=== PATIENT | male | born 1970 | race Caucasian/White ===

== ENCOUNTER 2016-12-03 21:24 | Emergency (ER) | payer BC ==
[~2016-12-03] VITALS: Ht 190.5 cm; Wt 104.0 kg
[2016-12-03] MEDS ORDERED: FLUOXETINE HCL10 M1 PO (21:47)
[2016-12-03 22:04] LABS: ADD MIUA? YES; BILIRUBIN NEGATIVE; BLOOD LARGE; COLOR BROWN ((YELLOW)); GLUCOSE (STRIP) NEGATIVE; KETONES NEGATIVE; LEUKOCYTES LARGE; NITRITE NEGATIVE; PROTEIN (STRIP) 100; SPECIFIC GRAVITY 1.025 (1.000-1.030); UROBILINOGEN 0.2 MG/DL (0.2-1.0)
[2016-12-03 22:17] LABS: RED BLOOD CELLS TNTC /HPF (0-5); UCUL ADDED? YES; WHITE BLOOD CELLS TNTC /HPF (0-5)
[2016-12-03] MEDS ORDERED: CIPRO500 MG PO (23:46)
[2016-12-04] VITALS: BP 127/78
== END 2016-12-04 00:06 | disposition home or self-care (01) ==
LOC: EME 21:24
DX: N39.0 Urinary tract infection, site not specified (principal); R42 Dizziness and giddiness; F17.220 Nicotine dependence, chewing tobacco, uncomplicated
CPT/HCPCS: 74176; 81003; 87077; 87086; 87186; 99281; 99285